=== PATIENT | male | born 1925 | race Caucasian/White ===

== ENCOUNTER 2016-08-14 10:20 | Inpatient (IN) | payer MEDICARE ==
[~2016-08-14] VITALS: Ht 170.2 cm; Wt 85.7 kg
[2016-08-14] MEDS ORDERED: IV NS 0.9% 500 ML BAG IV ONE (10:30)
[2016-08-14] MEDS ORDERED: IV NS 0.9% 500 ML IV ONE (10:32)
[2016-08-14] MEDS ORDERED: IV SET PRIMARY 1 EA INFUS.SET MC ONE (10:32)
[2016-08-14 10:34] LABS: BASOPHILS % (AUTO) 0.5 % (0.0-2.0); EOSINOPHILS % (AUTO) 0.8 % (0.0-6.0); HEMATOCRIT 42 % (39-51); HEMOGLOBIN 13.8 g/dL (13.5-17.5); LYMPHOCYTES % (AUTO) 17.5 % (20.0-44.0); MEAN CORPUSCULAR HEMOGLOBIN 31 PG (26.0-33.0); MEAN CORPUSCULAR HGB CONC 33 g/dl (31.0-36.0); MEAN CORPUSCULAR VOLUME 95 fL (80-96); MONOCYTES # (AUTO) 0.4 /CMM (0.1-1.30); MONOCYTES % (AUTO) 7.6 % (2.0-12.0); NEUTROPHILS # (AUTO) 4.3 /CMM (1.8-8.9); NEUTROPHILS % (AUTO) 73.6 % (43.0-81.0); PLATELET COUNT (AUTO) 145 /CMM (150-450); RDW COEFFICIENT OF VARIATION 12.6 (11.5-15.0); RED BLOOD CELL COUNT(AUTO) 4.45 MIL/uL (4.5-6.0); WHITE BLOOD COUNT (AUTO) 5.7 K/uL (4.3-11.0)
[2016-08-14 10:46] LABS: CALCIUM, SERUM 7.8 mg/dL (8.5-10.1); CARBON DIOXIDE 30 mmol/L (21-32); CHLORIDE 105 mmol/L (98-107); CREATININE 1.4 mg/dL (0.6-1.3); GLUCOSE 111 mg/dL (74-106); POTASSIUM 3.9 mmol/L (3.5-5.1); SODIUM SERUM 141 mmol/L (136-145); UREA NITROGEN, BLOOD 20 mg/dL (7-18)
[2016-08-14 10:48] LABS: INR 1.06 (0.87-1.13)
[2016-08-14 10:55] LABS: TROPONIN I < 0.017 ng/mL (0.00-0.056)
[2016-08-14 10:58] LABS: ALANINE AMINOTRANSFERASE < 6 U/L (12-78); ALBUMIN 3.4 g/dL (3.4-5.0); ALKALINE PHOSPHATASE 57 U/L (46-116); ASPARTATE AMINOTRANSFERASE 14 U/L (15-37); BILIRUBIN,DIRECT 0.1 mg/dL (0.0-0.2); BILIRUBIN,TOTAL 0.5 mg/dL (0.2-1.0); TOTAL PROTEIN, SERUM 6.3 g/dL (6.4-8.2)
[2016-08-14] MEDS ORDERED: ASPI-991 PO (11:37)
[2016-08-14] MEDS ORDERED: ESCI20TA PO (11:37)
[2016-08-14] MEDS ORDERED: CARB-93 PO (11:37)
[2016-08-14] MEDS ORDERED: BISA-79 PO (11:37)
[2016-08-14] MEDS ORDERED: BUPR75TA8 PO (11:37)
[2016-08-14] MEDS ORDERED: CALC625T65 PO (11:37)
[2016-08-14] MEDS ORDERED: ACET325T53 PO ×2 (11:38)
[2016-08-14] MEDS ORDERED: CETI5TAB30 PO (11:38)
[2016-08-14] MEDS ORDERED: ASCO500T9 PO (11:38)
[2016-08-14] MEDS ORDERED: CHOL200026 PO (11:38)
[2016-08-14] MEDS ORDERED: SIMV20TA6 PO (11:38)
[2016-08-14] MEDS ORDERED: KRIL1CAP18 PO (11:38)
[2016-08-14] MEDS ORDERED: TRAZ-147 PO (11:38)
[2016-08-14] MEDS ORDERED: GABA-532 PO (11:38)
[2016-08-14] MEDS ORDERED: OMEP20TA20 PO (11:38)
[2016-08-14] MEDS ORDERED: ONDA8TAB6 PO (11:49)
[2016-08-14] MEDS ORDERED: GUAI600T PO (11:49)
[2016-08-14] MEDS ORDERED: TRIA15OI9 TP (11:49)
[2016-08-14] MEDS ORDERED: MENT113O4 TP (11:49)
[2016-08-14] MEDS ORDERED: SENN-18 PO (11:49)
[2016-08-14] MEDS ORDERED: NA P RC (11:49)
[2016-08-14] MEDS ORDERED: POLY255P2 PO (11:49)
[2016-08-14 12:30] VITALS: BP 138/70
[2016-08-14] MEDS ORDERED: IV NS 0.9% 1,000 ML IV PRN (13:18)
[2016-08-14] MEDS ORDERED: MAGNESIUM HYDROXIDE 30 ML UDC PO PRN (13:30)
[2016-08-14] MEDS ORDERED: Z GUARD REMEDY 2 OZ OINT TP PRN (13:30)
[2016-08-14] MEDS ORDERED: ZOLPIDEM TARTRATE 5 MG TABLET PO PRN (13:30)
[2016-08-14] MEDS ORDERED: ACETAMINOPHEN 325 MG TABLET PO PRN (13:30)
[2016-08-14] MEDS ORDERED: HYDROCODONE/APAP 5/325MG 1 EACH TABLET PO PRN (13:30)
[2016-08-14] MEDS ORDERED: MAG HYDROX/AL HYDROX/SIMETH 30 ML UDC PO PRN (13:30)
[2016-08-14] MEDS ORDERED: ONDANSETRON HCL/PF 4 MG/2 ML VIAL IVP PRN (13:30)
[2016-08-14] MEDS ORDERED: SENNOSIDES 8.6 MG TABLET PO PRN (13:30)
[2016-08-14] MEDS ORDERED: ENOXAPARIN SODIUM 40 MG/0.4 ML DISP.SYRIN SQ SCH (13:31)
[2016-08-14 16:00] VITALS: BP 138/70
[2016-08-14] MEDS: CARBIDOPA/LEVODOPA 25/100 MG 1 UDTAB PO SCH ×2 (18:12→21:38)
[2016-08-14] MEDS: BISACODYL (5 MG) 5 MG TABLET.DR PO SCH (18:12)
[2016-08-14 20:00] VITALS: BP 154/84
[2016-08-14] MEDS ORDERED: GUAIFENESIN LA 600 MG TABLET.SA PO PRN (21:00)
[2016-08-14] MEDS ORDERED: SIMVASTATIN 20 MG TABLET PO SCH (22:00)
[2016-08-14] MEDS ORDERED: TRAZODONE 50 MG TABLET PO SCH (22:00)
[2016-08-14] MEDS ORDERED: GABAPENTIN 100 MG CAPSULE PO SCH (22:00)
[2016-08-15 04:00] VITALS: BP 141/83
[2016-08-15 07:28] LABS: APPEARANCE,URINE CLEAR (CLEAR); BILIRUBIN,URINE NEGATIVE (NEGATIVE); BLOOD, URINE NEGATIVE Ery/uL (NEGATIVE); COLOR,URINE YELLOW (YELLOW); KETONES,URINE NEGATIVE (NEGATIVE); LEUKOCYTE ESTERASE ,URINE NEGATIVE (NEGATIVE); NITRITE, URINE NEGATIVE (NEGATIVE); PH,URINE 5.5 (5.0-8.0); PROTEIN,URINE NEGATIVE (NEGATIVE); UGLUCOSE NEGATIVE (NEGATIVE); UROBILINOGEN,URINE 0.2 EU/dL (0.2)
[2016-08-15 07:29] LABS: BASOPHILS % (AUTO) 0.6 % (0.0-2.0); EOSINOPHILS # (AUTO) 0.1 /CMM (0.0-0.7); EOSINOPHILS % (AUTO) 1.9 % (0.0-6.0); HEMATOCRIT 42 % (39-51); HEMOGLOBIN 14.1 g/dL (13.5-17.5); LYMPHOCYTES # (AUTO) 1.2 /CMM (0.8-4.8); LYMPHOCYTES % (AUTO) 21.8 % (20.0-44.0); MEAN CORPUSCULAR HEMOGLOBIN 33 PG (26.0-33.0); MEAN CORPUSCULAR HGB CONC 34 g/dl (31.0-36.0); MEAN CORPUSCULAR VOLUME 96 fL (80-96); MONOCYTES # (AUTO) 0.5 /CMM (0.1-1.30); MONOCYTES % (AUTO) 9.9 % (2.0-12.0); NEUTROPHILS # (AUTO) 3.6 /CMM (1.8-8.9); NEUTROPHILS % (AUTO) 65.8 % (43.0-81.0); PLATELET COUNT (AUTO) 132 /CMM (150-450); RDW COEFFICIENT OF VARIATION 12.9 (11.5-15.0); RED BLOOD CELL COUNT(AUTO) 4.33 MIL/uL (4.5-6.0); WHITE BLOOD COUNT (AUTO) 5.5 K/uL (4.3-11.0)
[2016-08-15] MEDS ORDERED: PANTOPRAZOLE 40 MG TABLET.DR PO SCH (07:30)
[2016-08-15 07:43] LABS: CALCIUM, SERUM 7.6 mg/dL (8.5-10.1); CARBON DIOXIDE 31 mmol/L (21-32); CHLORIDE 107 mmol/L (98-107); GLUCOSE 106 mg/dL (74-106); PHOSPHORUS 2.6 mg/dL (2.5-4.9); POTASSIUM 3.5 mmol/L (3.5-5.1); SODIUM SERUM 143 mmol/L (136-145); UREA NITROGEN, BLOOD 16 mg/dL (7-18)
[2016-08-15 07:47] LABS: CHOLESTEROL 133 mg/dL (<200); HDL CHOLESTEROL 47 mg/dL (40-60); LDL 65 mg/dL (0-99); TRIGLYCERIDES 78 mg/dL (30-150)
[2016-08-15] MEDS: BISACODYL (5 MG) 5 MG TABLET.DR PO SCH (08:36)
[2016-08-15] MEDS: CARBIDOPA/LEVODOPA 25/100 MG 1 UDTAB PO SCH ×2 (08:41→12:19)
[2016-08-15 09:00] VITALS: BP 156/91
[2016-08-15] MEDS ORDERED: ASPIRIN EC 81 MG TABLET.DR PO SCH (09:00)
[2016-08-15] MEDS ORDERED: buPROPion 75 MG TABLET PO SCH (09:00)
[2016-08-15 09:36] VITALS: BP 156/91
== END 2016-08-15 15:00 | DRG 73 ==
LOC: ER 10:23 → TELE 11:30 → MED 08-15 10:28
PROVIDERS: ADMIT Internal Medicine; ATTEND Internal Medicine
DX: G90.8 Other disorders of autonomic nervous system (principal); N17.0 Acute kidney failure with tubular necrosis; E78.5 Hyperlipidemia, unspecified; F03.90 Unspecified dementia, unspecified severity, without behavioral disturbance, psychotic disturbance, mood disturbance, and anxiety; F32.9 Major depressive disorder, single episode, unspecified; G20 Parkinson's disease; G62.9 Polyneuropathy, unspecified; K21.9 Gastro-esophageal reflux disease without esophagitis; I10 Essential (primary) hypertension; Z79.899 Other long term (current) drug therapy; Z91.81 History of falling; Z86.79 Personal history of other diseases of the circulatory system; I70.90 Unspecified atherosclerosis
CPT/HCPCS: 36415; 70450-TC; 71010-TC; 80048-TC; 80061-TC; 80076-TC; 81000-TC; 83735-TC; 84100-TC; 84484-TC; 85025-TC; 85730-TC; 87081-TC; 93307-TC; A4606; J1650; J7030; J7040; Z7610

== ENCOUNTER 2016-09-13 11:49 | Inpatient (IN) | payer MEDICARE, BC ==
[~2016-09-13] VITALS: Ht 182.9 cm; Wt 99.8 kg
[~2016-09-13 11:49] MED LIST: ACET325T53 PO; ASCO500T9 PO; ASPI-991 PO; BISA-79 PO; BUPR75TA8 PO; CALC625T65 PO; CARB-93 PO; CETI5TAB30 PO; CHOL200026 PO; ESCI20TA PO; GABA-532 PO; GUAI600T PO; KRIL1CAP18 PO; MENT113O4 TP; NA P RC; OMEP20TA20 PO; ONDA8TAB6 PO; POLY255P2 PO; SENN-18 PO; SIMV20TA6 PO; TRAZ-147 PO; TRIA15OI9 TP
--- NOTE | 2016-09-13 11:50 | NUR ---
PATIENT BIB FAMILY FROM [place] D/T WORSENING WEAKNESS. PATIENT IS A/OX 2-3, SLIGHTLY LETHARGIC. BREATHING EVEN AND UNLABORED. NO SOB. VITALS STABLE. SAFETY AND COMFORT MEASURES IN PLACE. AWAITING MD ORDERS.
[2016-09-13] MEDS ORDERED: IV NS 0.9% 500 ML BAG IV ONE (12:00)
[2016-09-13 12:12] LABS: BASOPHILS % (AUTO) 0.2 % (0.0-2.0); EOSINOPHILS % (AUTO) 0.3 % (0.0-6.0); HEMATOCRIT 44 % (39-51); HEMOGLOBIN 14.1 g/dL (13.5-17.5); LYMPHOCYTES # (AUTO) 0.5 /CMM (0.8-4.8); MEAN CORPUSCULAR HEMOGLOBIN 31 PG (26.0-33.0); MEAN CORPUSCULAR HGB CONC 33 g/dl (31.0-36.0); MEAN CORPUSCULAR VOLUME 96 fL (80-96); MONOCYTES # (AUTO) 0.6 /CMM (0.1-1.30); MONOCYTES % (AUTO) 6.3 % (2.0-12.0); NEUTROPHILS % (AUTO) 88.2 % (43.0-81.0); PLATELET COUNT (AUTO) 122 /CMM (150-450); RED BLOOD CELL COUNT(AUTO) 4.53 MIL/uL (4.5-6.0); WHITE BLOOD COUNT (AUTO) 10.1 K/uL (4.3-11.0)
[2016-09-13 12:22] LABS: CALCIUM, SERUM 8.3 mg/dL (8.5-10.1); CARBON DIOXIDE 29 mmol/L (21-32); CHLORIDE 104 mmol/L (98-107); CREATININE 1.3 mg/dL (0.6-1.3); GLUCOSE 139 mg/dL (74-106); POTASSIUM 3.5 mmol/L (3.5-5.1); SODIUM SERUM 139 mmol/L (136-145); UREA NITROGEN, BLOOD 25 mg/dL (7-18)
[2016-09-13 12:26] LABS: INR 1.1 (0.87-1.13); PROTHROMBIN TIME 11.5 SECS (9.5-12.7)
[2016-09-13 12:28] LABS: ALANINE AMINOTRANSFERASE 49 U/L (12-78); ALBUMIN 3.6 g/dL (3.4-5.0); ALKALINE PHOSPHATASE 152 U/L (46-116); ASPARTATE AMINOTRANSFERASE 202 U/L (15-37); BILIRUBIN,DIRECT 0.6 mg/dL (0.0-0.2); TOTAL PROTEIN, SERUM 6.5 g/dL (6.4-8.2)
--- NOTE | 2016-09-13 12:29 | NUR ---
PATIENT TAKEN TO CT SCAN VIA STRETCHER.
[2016-09-13 12:30] LABS: TROPONIN I < 0.017 ng/mL (0.00-0.056)
--- NOTE | 2016-09-13 12:38 | NUR ---
TEXTED DR. MCCARTHY FOR MRI APPROVAL.
--- NOTE | 2016-09-13 12:40 | NUR ---
PATIENT RETURNED FROM CT SCAN
--- NOTE | 2016-09-13 12:42 | NUR ---
DR. MCCARTHY TEXTED BACK, ON HOLD FOR NOW, HE WILL LET US KNOW.
[2016-09-13 13:21] LABS: THYROID STIMULATING HORMONE 1.263 uIU/mL (0.358-3.74)
--- NOTE | 2016-09-13 13:22 | NUR ---
PATIENT TAKEN TO CT SCAN OF ABDOMEN VIA STRETCHER.
[2016-09-13] MEDS ORDERED: IV NS 0.9% 1,000 ML BAG IV ONE (13:30)
[2016-09-13] MEDS ORDERED: PIPERACILLIN /TAZOBACTAM 3.375 G in IV D5W 50 ML IV ONE (13:30)
[2016-09-13] MEDS ORDERED: VANCOMYCIN 1 GM in IV D5W 250 ML IV ONE (13:30)
--- NOTE | 2016-09-13 13:34 | NUR ---
PATIENT RETURNED BACK FROM CT SCAN.
--- NOTE | 2016-09-13 13:55 | NUR ---
CALLED [employer]A CAVAZOS PHOTOCOMPOSING KEYBOARD OPERATOR WAS PAGED.
[2016-09-13] MEDS ORDERED: MORPHINE SULFATE INJ 2 MG/ML DISP.SYRIN ONE (14:03)
--- NOTE | 2016-09-13 14:11 | NUR ---
DR MELLO ON THE PHONE WITH DR JESSICA.
[2016-09-13] MEDS ORDERED: ONDANSETRON HCL/PF 4 MG/2 ML VIAL ONE (14:30)
[2016-09-13] MEDS ORDERED: MORPHINE SULFATE INJ 2 MG/ML DISP.SYRIN IV ONE (14:30)
[2016-09-13] MEDS ORDERED: ONDANSETRON HCL/PF 4 MG/2 ML VIAL IV ONE (14:30)
--- NOTE | 2016-09-13 14:35 | NUR ---
REPORT GIVEN TO HEIKE LOPEZ FOR IGOR UPON ADMISSION.
[2016-09-13 14:44] LABS: APPEARANCE,URINE SL CLOUDY (CLEAR); BILIRUBIN,URINE NEGATIVE (NEGATIVE); BLOOD, URINE NEGATIVE Ery/uL (NEGATIVE); COLOR,URINE DARK YELLO (YELLOW); KETONES,URINE TRACE (NEGATIVE); LEUKOCYTE ESTERASE ,URINE NEGATIVE (NEGATIVE); NITRITE, URINE NEGATIVE (NEGATIVE); PH,URINE 5.5 (5.0-8.0); PROTEIN,URINE NEGATIVE (NEGATIVE); UGLUCOSE NEGATIVE (NEGATIVE)
--- NOTE | 2016-09-13 14:45 | NUR ---
PATIENT TRANSPORTED TO [facility] VIA STRETCHER WITH EMT AND RN. RN, JESSICA TO PROVIDE IGOR.
[2016-09-13 14:51] LABS: BACTERIA,URINE None seen /HPF (None Seen); SQUAMOUS EPITHELIAL CELL,UR Rare /HPF (None Seen); WBC,URINE 0-2 /HPF (0-3)
[2016-09-13 15:00] VITALS: BP 130/72
[2016-09-13] MEDS ORDERED: ACETAMINOPHEN 325 MG TABLET PO PRN (15:00)
[2016-09-13] MEDS ORDERED: ONDANSETRON HCL/PF 4 MG/2 ML VIAL IVP PRN (15:00)
[2016-09-13] MEDS: PANTOPRAZOLE 40 MG TABLET.DR PO SCH (15:00)
[2016-09-13] MEDS ORDERED: ZOLPIDEM TARTRATE 5 MG TABLET PO PRN (15:00)
[2016-09-13] MEDS ORDERED: MAG HYDROX/AL HYDROX/SIMETH 30 ML UDC PO PRN (15:00)
[2016-09-13] MEDS ORDERED: HYDROCODONE/APAP 5/325MG 1 EACH TABLET PO PRN (15:00)
[2016-09-13] MEDS ORDERED: MAGNESIUM HYDROXIDE 30 ML UDC PO PRN (15:00)
[2016-09-13] MEDS ORDERED: PIPERACILLIN /TAZOBACTAM 4.5 G in IV D5W 50 ML IV SCH (15:00)
--- NOTE | 2016-09-13 15:00 | NUR ---
MS/RN Patient received Patient received from emergency room with diagnose of generalized weakness and infection. Patient fully admitted, pictures taken and placed in chart. Admitting order's entered by Dr Montemayor.
[2016-09-13] MEDS: IV NS 0.9% 1,000 ML IV PRN (16:49)
[2016-09-13] MEDS ORDERED: HALOPERIDOL LACTATE INJ 5 MG/ML VIAL IM ONE (17:30)
--- NOTE | 2016-09-13 17:30 | NUR ---
MS/RN Agitation. Patient becoming increasingly agitated, climbing out of bed, removing IV line and tele monitor. Son at bedside but unable to calm father. Dr Montemayor called to obtain order for medication to calm patient. Call back from Dr Montemayor - orders given for one time dose of haldol 1mg IM X1 dose, sitter 1:1 and mittens if needed.
[2016-09-13] MEDS: PIPERACILLIN /TAZOBACTAM 3.375 G in IV D5W 50 ML IV SCH (17:36)
--- NOTE | 2016-09-13 17:53 | NUR ---
MS/RN Haldol Haldol 1mg administered IM for agitation, will monitor effectiveness.
--- NOTE | 2016-09-13 18:33 | NUR ---
MS/RN End note Patient now calm after haldol was administered. All orders carried out. Will continue to monitor and ensure safety.
--- NOTE | 2016-09-13 19:15 | NUR ---
ROVING SIZER NOTES RECEIVED PT IN BED, RESTING AT THIS TIME, AROUSES EASILY A/O X1-2 , DTR AT BEDSIDE. NO DISTRESS, NO SOB NOTED. ON 02 @ 2LPM VIA NC TOLERATED WELL. PT WITH ON AND OFF EPISODES OF ATTEMPTING TO PULL OUT IV LINE. ALSO WITH EPISODES OF RESTLESSNESS NOTED. PT ORIENTED TO REALITY. SAFETY PRECAUTIONS OBSERVED. IV SITE ON LFA INTACT AND PATENT, IVF INFUSING WELL. ALL NEEDS ATTENDED AND MET. CALL LIGHT WITHIN REACH. BED ON LOWEST LEVEL. SR UP X 2 . WILL CONT TO MONITOR.
[2016-09-13 20:00] VITALS: BP 159/76
--- NOTE | 2016-09-13 20:45 | NUR ---
PT TRYING TO PULL OUT IV AND ATTEMPTING TO REMOVE BOILER WASHER LEADS, AND ATTEMPTING TO BITE THE 02 TUBING. ORIENTED PT TO REALITY, PT IS A/O X 1 AT THIS TIME. PT ON 1: 1 SITTER FOR SAFETY . WILL CONT TO MONITOR.
--- NOTE | 2016-09-13 22:00 | NUR ---
PT IN BED, RESTING AT THIS TIME, STILL WITH EPISODES OF RESTLESSNESS. NO DISTRESS NOTED ON SINUS RHYTHM 87 ON THE MONITOR. SITTER AT BED SIDE FOR SAFETY . WILL CONT TO MONITOR.
[2016-09-14] VITALS: BP_SYST 140; BP_SYST 168; BP_DIAS 65; BP_DIAS 86
--- NOTE | 2016-09-14 | NUR ---
PLACED A CALL TO VINEET ABDI NP REGARDING PATIENT'S CODE STATUS. BARREL ROLLER OPERATOR WITH N.O NOTED AND CARRIED OUT
[2016-09-14] MEDS: PIPERACILLIN /TAZOBACTAM 3.375 G in IV D5W 50 ML IV SCH ×4 (00:08→18:48)
[2016-09-14 04:00] VITALS: BP 156/80
--- NOTE | 2016-09-14 06:32 | NUR ---
MEDICAID SERVICE COORDINATOR NOTES PT IN BED, RESTING AT THIS TIME, AROUSES EASILY A/O X1-2 . NO DISTRESS, NO SOB NOTED. ON 02 @ 2LPM VIA NC TOLERATED WELL. PT WITH ON AND OFF EPISODES OF ATTEMPTING TO PULL OUT IV LINE. ALSO WITH EPISODES OF RESTLESSNESS NOTED. PT ORIENTED TO REALITY. SAFETY PRECAUTIONS OBSERVED. SITTER AT BED SIDE FOR SAFETY. IV SITE ON LFA INTACT AND PATENT, IVF INFUSING WELL. ALL NEEDS ATTENDED AND MET. CALL LIGHT WITHIN REACH. BED ON LOWEST LEVEL. SR UP X 2 . WILL ENDORSE TO NEXT SHIFT FOR IGOR.
--- NOTE | 2016-09-14 07:20 | NUR ---
TANK BUILDER HELPER NOTES RECEIVED PATIENT IN BED RESTING, AROUSES EASILY A/O X 1-2, CONFUSED, REORIENTED PATIENT TO REALITY. SITTER ON BEDSIDE FOR SAFETY.. NO ACUTE DISTRESS, NO SOB NOTED. IV SITE INTACT AND PATENT. SAFETY PRECAUTIONS OBSERVED. BED IN LOWEST POSITION, LOCKED SIDERAILS UP X2. CALL LIGHT WITHIN REACH. WILL CONTINUE TO MONITOR ACCORDINGLY.
--- NOTE | 2016-09-14 07:25 | NUR ---
RN NOTES PATIENT IS CALM THIS MORNING. WILL CONTINUE TO MONITOR.
[2016-09-14 08:00] VITALS: BP 145/73
[2016-09-14] MEDS: PANTOPRAZOLE 40 MG TABLET.DR PO SCH (08:19)
--- NOTE | 2016-09-14 08:23 | NUR ---
RN NOTES MD ORDERED D/C TELEMETRY
--- NOTE | 2016-09-14 09:47 | NUR ---
RN NOTES PT EVAL DONE, PATIENT MAXIMUM ASSIST.
[2016-09-14 10:00] VITALS: BP 145/73
[2016-09-14 11:08] LABS: BASOPHILS % (AUTO) 0.1 % (0.0-2.0); EOSINOPHILS % (AUTO) 0.3 % (0.0-6.0); HEMATOCRIT 38 % (39-51); HEMOGLOBIN 12.7 g/dL (13.5-17.5); LYMPHOCYTES # (AUTO) 0.5 /CMM (0.8-4.8); LYMPHOCYTES % (AUTO) 6.4 % (20.0-44.0); MEAN CORPUSCULAR HEMOGLOBIN 32 PG (26.0-33.0); MEAN CORPUSCULAR HGB CONC 34 g/dl (31.0-36.0); MEAN CORPUSCULAR VOLUME 96 fL (80-96); MONOCYTES # (AUTO) 0.7 /CMM (0.1-1.30); MONOCYTES % (AUTO) 9.2 % (2.0-12.0); NEUTROPHILS # (AUTO) 6.9 /CMM (1.8-8.9); PLATELET COUNT (AUTO) 98 /CMM (150-450); RDW COEFFICIENT OF VARIATION 13.6 (11.5-15.0); RED BLOOD CELL COUNT(AUTO) 3.92 MIL/uL (4.5-6.0); WHITE BLOOD COUNT (AUTO) 8.2 K/uL (4.3-11.0)
[2016-09-14 11:34] LABS: ALANINE AMINOTRANSFERASE 110 U/L (12-78); ALBUMIN 2.7 g/dL (3.4-5.0); ALKALINE PHOSPHATASE 101 U/L (46-116); ASPARTATE AMINOTRANSFERASE 83 U/L (15-37); BILIRUBIN,DIRECT 0.4 mg/dL (0.0-0.2); BILIRUBIN,TOTAL 1.1 mg/dL (0.2-1.0); CALCIUM, SERUM 7.1 mg/dL (8.5-10.1); CARBON DIOXIDE 28 mmol/L (21-32); CHLORIDE 106 mmol/L (98-107); CREATININE 1.1 mg/dL (0.6-1.3); GLUCOSE 140 mg/dL (74-106); MAGNESIUM 1.7 mg/dL (1.8-2.4); PHOSPHORUS 1.9 mg/dL (2.5-4.9); POTASSIUM 3.3 mmol/L (3.5-5.1); SODIUM SERUM 142 mmol/L (136-145); TOTAL PROTEIN, SERUM 5.3 g/dL (6.4-8.2); UREA NITROGEN, BLOOD 17 mg/dL (7-18)
[2016-09-14 11:38] LABS: BAND % (MANUAL) 2 % (0.0-5.0); LYMPHOCYTES % (MANUAL) 1 % (16-48); MONOCYTES % (MANUAL) 5 % (0-11.0); NEUTROPHILS % (MANUAL) 92 (42-76)
[2016-09-14 11:41] LABS: CHOLESTEROL 118 mg/dL (<200); HDL CHOLESTEROL 44 mg/dL (40-60); LDL 60 mg/dL (0-99); THYROID STIMULATING HORMONE 1.664 uIU/mL (0.358-3.74); TRIGLYCERIDES 64 mg/dL (30-150)
[2016-09-14] MEDS: ASPIRIN 81 MG TAB.CHEW PO SCH (11:51)
[2016-09-14] MEDS: CARVEDILOL 12.5 MG TABLET PO SCH ×2 (11:52→21:02)
[2016-09-14] MEDS: ENOXAPARIN SODIUM 40 MG/0.4 ML DISP.SYRIN SQ SCH (11:58)
[2016-09-14] MEDS ORDERED: QUETIAPINE FUMARATE 25 MG TABLET PO PRN (12:30)
[2016-09-14] MEDS: CARBIDOPA/LEVODOPA 25/100 MG 1 UDTAB PO SCH ×2 (12:33→17:28)
[2016-09-14] MEDS: IV NS 0.9% 1,000 ML IV PRN (12:36)
[2016-09-14 16:00] VITALS: BP_SYST 145; BP_SYST 151; BP_DIAS 85; BP_DIAS 87
[2016-09-14] MEDS ORDERED: NEUTRA PHOS 1 POWD.PACKET PO ONE (17:00)
[2016-09-14] MEDS ORDERED: POTASSIUM CHLORIDE 20 MEQ TAB.PRT.SR PO ONE (17:00)
[2016-09-14] MEDS ORDERED: Magnesium 1GM/D5W 100ML PREMIX PIGGYBACK IV ONE (17:00)
--- NOTE | 2016-09-14 17:18 | NUR ---
RN NOTES PATIENT COMPLAIN DIFFICULTY BM. PATIENT WAS IMPACTED, CHARGE NURSE MADE AWARE. FLEET ENEMA ORDERED AND CARRIED OUT. PATIENT TOLERATED ENEMA WELL HAVING LARGE SOFT BROWN STOOL.
[2016-09-14] MEDS ORDERED: Magnesium 1GM/D5W 100ML PREMIX 100 ML IV SCH (17:30)
[2016-09-14] MEDS ORDERED: NA PHOS,M-B/NA PHOS,DI-BA 1 EA ENEMA RC PRN (17:30)
--- NOTE | 2016-09-14 19:00 | NUR ---
RN CLOSING NOTES PATIENT IN BED RESTING, FAMILY ON BEDSIDE. PATIENT CALM AND COOPERATIVE. NO ACUTE DISTRESS, NO SOB NOTED. ALL NEEDS ATTENDED AND PROVIDED. KEPT PATIENT SAFE AND COMFORTABLE. ENDORSED TO INFORMATION SYSTEMS SECURITY SPECIALIST RN FOR CONTINUITY OF CARE.
--- NOTE | 2016-09-14 19:20 | NUR ---
MS/TEST CLERK; RECEIVED PT'S REPORT FROM THE DAY SHIFT RN FOR CONTINUITY OF CARE. AT THIS TIME PT IN BED WITH SON AND DAUGHTER VISITING. PT IS AWAKE , TALKING BUT CONFUSED. HOB AT 45 DEGREES. PT WHEN I ASKED HOW HE IS HE SAID OK AND ABLE TO SHAKE WITH MY RT HAND. WITH O2 3L NC ON. BREATHING NON LABORED. IVF INFUSING FINE ON LFA.BED ON LOWER POSITION AND LOCKED FOR SAFETY. SIDE RAILS ARE UP FOR SAFETY. SITTER PRESENT . NOTED PT KEEP TOUCHING HIS RT EAR AND SAID SLIGHT SORE. CONTINUE TO MONITOR.
--- NOTE | 2016-09-14 19:50 | NUR ---
MS/MRP CONTROLLER; CHARGE NURSE MADE ROUND AND ABLE TO MET AND TALKED TO THE PT'S SON AND DAUGHTER. THEN PT'S SON AMD DAUGHTER WENT HOME.
--- NOTE | 2016-09-14 20:15 | NUR ---
MS/WEALTH MANAGEMENT DIRECTOR; NOTED PT IS INCONTINENT OF URINE LARGE AMOUNT YELLOW URINE. PERINEAL CARE DONE. DIAPER CHANGED . ABLE ABLE TO TURN TO SIDE WITH HELP. TURNED AND REPOSITIONED TO LT SIDE WITH PILLOWS SUPPORT TO HIS BACK AND BOTH HEELS ARE OFFLOADED.
[2016-09-14 20:30] VITALS: BP 155/92
[2016-09-14] MEDS: QUETIAPINE FUMARATE 25 MG TABLET PO SCH (21:03)
--- NOTE | 2016-09-14 21:15 | NUR ---
MS/CONTROL OFFICER; PT WAS ASKING WATER AND TYLENOL FOR C/O RT EAR PAIN. TYLENOL 650 MG TABS Q6 HOUR PRN GIVEN AT 2117 . PT ABLE TO SWALLOW WITHOUT PROBLEM. ASPIRATION PRECAUTION OBSERVED.
--- NOTE | 2016-09-14 22:00 | NUR ---
MS/SALES TRAINING MANAGER; PT IN BED SLEEPING AT THIS TIME. HOB AT 45 DEGREES. WITH O2 3L NC ON. BREATHING NON LABORED. IVF ON PROGRESS. SITTER PRESENT IN THE ROOM. WILL CONTINUE TO MONITOR.
--- NOTE | 2016-09-14 23:30 | NUR ---
MS/CLIP WRAPPER; NOTED PT WOKE UP TALKING TO SELF , CONFUSED KEEP REMOVING HIS GOWN AND KEEP TOUCHING THE IV TRYING TO REMOVE . ALSO PT NOTED INCONTINENT OF URINE YELLOW COLOR LARGE AMOUNT. BED BATH GIVEN. TOTAL BED LINENS AND GOWN CHANGED. TURNED AND REPOSITIONED FOR COMFORT. IVF INFUSING FINE. O2 2L NC ON . WILL CONTINUE TO MONITOR.
--- NOTE | 2016-09-15 | NUR ---
MS/TUNE UP MECHANIC; PT AT THIS TIME. SLEEPING QUIETLY. BREATHING NON LABORED. O2 2L NC ON. IVF INFUSING FINE. SITTER PRESENT. WILL CONTINUE TO MONITOR.
[2016-09-15] MEDS: PIPERACILLIN /TAZOBACTAM 3.375 G in IV D5W 50 ML IV SCH ×5 (00:05→23:17)
--- NOTE | 2016-09-15 02:00 | NUR ---
MS/CONTINUITY CLERK; PT IS AWAKE NOTED INCONTINENT OF URINE LARGE AMOUNT YELLOW COLOR. PERINEAL AND DIAPER CHANGED. TURNED AND REPOSITIONED. TO RT SIDE WITH PILLOWS SUPPORT TO BACK AND BOTH HEELS OFFLOADED.
--- NOTE | 2016-09-15 02:20 | NUR ---
MS/CORE WINDER; PT C/O AGAIN TO HIS RT EAR. I ASKED THE PAIN LEVEL HHE SAID 5 OUT OF 1O. WANTS PAIN MED. ALSO NOTED PT RUBBING HIS RT EAR. BP ON LA 156 / 88 P 88 , TEMP. 98.9 ON LAX, O2 SAT ON 2L NC 95 % r 20. NORCO 5-325 MG 1 TAB. PO Q4 PRN GIVEN HE SWALLOW THE PILL WITHOUT PROBLEM. WILL CONTINUE TO MONITOR. SITTER PRESENT.
[2016-09-15] MEDS: IV NS 0.9% 1,000 ML IV PRN (03:05)
--- NOTE | 2016-09-15 03:25 | NUR ---
MS/CHAIN SALES REPRESENTATIVE; PT AWAKE AT THIS TIME TALKING TO HIMSELF AND KEEP REMOVING HIS GOWN. NOTED INCONTINENT OF URINE AGAIN , PERINEAL CARE AND DIAPER CHANGED. REPOSITIONED.
--- NOTE | 2016-09-15 03:30 | NUR ---
MS/FONDANT PUFF MAKER; RE CHECKED TEMP. 99.0 PER LT AXILLA.
--- NOTE | 2016-09-15 04:25 | NUR ---
MS/PARA MACHINE OPERATOR; NOTED PT TRYING TO BIT HIS LFA WHERE THE IV LINE IS . I TOLD THE PT NOT TO DO IT ; PT SAID " I AM TRYING TO EAT MY DINNER" OFFERED WATER TO DRINK WHICH DRUNK IT. T3MP RE CHECKED 99.4.
--- NOTE | 2016-09-15 04:30 | NUR ---
MS/ELECTRICAL SYSTEMS ENGINEER; PT SLEEPING AT THIS TIME. BREATHING NON LABORED. WITH O2 2 L NC ON. WILL CONTINUE TO MONITOR.
--- NOTE | 2016-09-15 05:00 | NUR ---
MS/HIGH SCHOOL MATHEMATICS TEACHER; PT STILL SLEEPING AT THIS TIME. BREATHING NON LABORED. WILL CONTINUE TO MONITOR.
--- NOTE | 2016-09-15 07:04 | NUR ---
MS/MARINE FIRER; PT SLEPT ON AND OFF . CONFUSED AND KEPT REMOVING HIS GOWN AND BLANKET. IVF ON PROGRESS. CONTINUE TO MONITOR. SITTER PRESENT IN THE ROOM AT ALL TIMES FOR SAFETY. IVF ON PROGRESS. CONTINUE TO MONITOR. WILL ENDORSE TO THE DAY SHIFT RN.
--- NOTE | 2016-09-15 07:15 | NUR ---
RN OPENING NOTES RECEIVED PATIENT IN BED RESTING, AROUSES EASILY. PATIENT A/O X 1-2, CONFUSED SOMETIMES, REORIENTED PATIENT TO REALITY. NO ACUTE DISTRESS, NO SOB NOTED. IV SITE INTACT AND PATENT. KEPT PATIENT SAFE AND COMFORTABLE. BED IN LOW POSITION, LOCKED, SIDERAILS UP X2. CALL LIGHT WITHIN REACH. WILL CONTINUE TO MONITOR ACCORDINGLY.
[2016-09-15 08:00] VITALS: BP 155/90
[2016-09-15 08:23] VITALS: BP 155/90
[2016-09-15] MEDS: ASPIRIN 81 MG TAB.CHEW PO SCH (08:55)
[2016-09-15] MEDS: CARBIDOPA/LEVODOPA 25/100 MG 1 UDTAB PO SCH ×3 (08:55→17:54)
[2016-09-15] MEDS: PANTOPRAZOLE 40 MG TABLET.DR PO SCH (08:56)
[2016-09-15] MEDS: CARVEDILOL 12.5 MG TABLET PO SCH ×2 (08:56→20:17)
[2016-09-15] MEDS: ENOXAPARIN SODIUM 40 MG/0.4 ML DISP.SYRIN SQ SCH (09:03)
[2016-09-15 16:00] VITALS: BP 147/91
--- NOTE | 2016-09-15 19:00 | NUR ---
RN CLOSING NOTES PATIENT IN BED RESTING, SITTER ON BEDSIDE FOR SAFETY. NO ACUTE DISTRESS, NO SOB NOTED. ALL NEEDS ATTENDED AND PROVIDED. KEPT PATIENT SAFE AND COMFORTABLE. BED IN LOW POSITION, LOCKED, SIDERAILS UP X2. CALL LIGHT WITHIN REACH. ENDORSED TO MINERAL SURVEYING TECHNICIAN RN FOR CONTINUITY OF CARE.
--- NOTE | 2016-09-15 19:41 | NUR ---
RN NOTES RECEIVED PATIENT IN BED, ALERT AND AWAKE, WITH EPISODES OF CONFUSION, NO SOB, ON 2LPM VIA NC, SPO2 95%. NOT IN APPARENT PAIN AT THIS TIME, LEFT FA PERIPHERAL LINE IS PATENT AND INFUSING WELL WITH NS AT 75 CC/HR. REPOSITIONED FOR COMFORT, CALL LIGHT WITHIN REACH. SITTER AT THE BEDSIDE.
[2016-09-15 20:00] VITALS: BP 153/86
[2016-09-15 20:04] VITALS: BP 153/86
[2016-09-15] MEDS: QUETIAPINE FUMARATE 25 MG TABLET PO SCH (22:07)
[2016-09-16] MEDS: IV NS 0.9% 1,000 ML IV PRN ×2 (00:36→16:51)
[2016-09-16] MEDS: PIPERACILLIN /TAZOBACTAM 3.375 G in IV D5W 50 ML IV SCH ×3 (05:35→18:35)
--- NOTE | 2016-09-16 06:41 | NUR ---
RN CLOSING NOTES PATIENT IS AWAKE AND ALERT, NO SOB, ON 3LPM VIA NC, SP02 95%, CONFUSED, AGITATED AND COMBATIVE DURING NURSING CARE. LEFT FA PERIPHERAL LINE IS INFUSING WELL, SECURED WITH BURN NET, PATIENT HAS EPISODES OF PULLING IV LINE, KEPT SAFE, SITTER AT THE BEDSIDE, CALL LIGHT WITHIN REACH.
[2016-09-16 08:00] VITALS: BP_SYST 156; BP_DIAS 71; BP_DIAS 91
--- NOTE | 2016-09-16 08:00 | NUR ---
m/s kiln burner: initial assessment received pt in bed awake, alert to self only, appears weak. p.t. tx in progress. continue on 1:1 sitter for safety. no s/s of pain or any discomfort. reality orientation provided prn. call light within reach. will continue to monitor.
[2016-09-16] MEDS: CARVEDILOL 12.5 MG TABLET PO SCH ×2 (08:43→20:45)
[2016-09-16] MEDS: CARBIDOPA/LEVODOPA 25/100 MG 1 UDTAB PO SCH ×3 (08:43→16:51)
[2016-09-16] MEDS: ASPIRIN 81 MG TAB.CHEW PO SCH (08:43)
[2016-09-16] MEDS: ENOXAPARIN SODIUM 40 MG/0.4 ML DISP.SYRIN SQ SCH (08:44)
[2016-09-16] MEDS: PANTOPRAZOLE 40 MG TABLET.DR PO SCH (08:47)
--- NOTE | 2016-09-16 10:00 | NUR ---
m/s securities research analyst: notes titrated o2 to 2l/min via n/c. sitter remains at bedside. no s/s of sob. will continue to monitor.
[2016-09-16 10:48] LABS: BASOPHILS % (AUTO) 0.2 % (0.0-2.0); EOSINOPHILS % (AUTO) 0.2 % (0.0-6.0); HEMATOCRIT 39 % (39-51); HEMOGLOBIN 13.3 g/dL (13.5-17.5); LYMPHOCYTES # (AUTO) 0.7 /CMM (0.8-4.8); LYMPHOCYTES % (AUTO) 9.9 % (20.0-44.0); MEAN CORPUSCULAR HEMOGLOBIN 32 PG (26.0-33.0); MEAN CORPUSCULAR HGB CONC 34 g/dl (31.0-36.0); MEAN CORPUSCULAR VOLUME 95 fL (80-96); MONOCYTES % (AUTO) 13.5 % (2.0-12.0); NEUTROPHILS # (AUTO) 5.7 /CMM (1.8-8.9); NEUTROPHILS % (AUTO) 76.2 % (43.0-81.0); PLATELET COUNT (AUTO) 110 /CMM (150-450); RDW COEFFICIENT OF VARIATION 13.5 (11.5-15.0); RED BLOOD CELL COUNT(AUTO) 4.13 MIL/uL (4.5-6.0); WHITE BLOOD COUNT (AUTO) 7.5 K/uL (4.3-11.0)
[2016-09-16 11:00] LABS: ALANINE AMINOTRANSFERASE 36 U/L (12-78); ALBUMIN 2.6 g/dL (3.4-5.0); ALKALINE PHOSPHATASE 91 U/L (46-116); ASPARTATE AMINOTRANSFERASE 41 U/L (15-37); BILIRUBIN,TOTAL 0.8 mg/dL (0.2-1.0); CALCIUM, SERUM 7.6 mg/dL (8.5-10.1); CARBON DIOXIDE 31 mmol/L (21-32); CHLORIDE 105 mmol/L (98-107); GLUCOSE 136 mg/dL (74-106); SODIUM SERUM 142 mmol/L (136-145); TOTAL PROTEIN, SERUM 5.7 g/dL (6.4-8.2); UREA NITROGEN, BLOOD 9 mg/dL (7-18)
[2016-09-16 11:03] LABS: TROPONIN I 0.048 ng/mL (0.00-0.056)
[2016-09-16] MEDS ORDERED: POTASSIUM CHLORIDE 20 MEQ TAB.PRT.SR PO ONE (12:00)
--- NOTE | 2016-09-16 12:00 | NUR ---
m/s textile chemist: notes received new order from dr. siu and orders acknowledged. pharmacist vipul to clarify magnesium sulfate ivpb order, pt had no level today, last level on 09/14/2016 and was given 1 gm of magnesium sulfate on that same day. will continue to monitor.
--- NOTE | 2016-09-16 13:50 | NUR ---
m/s district plant supervisor: notes vipul (pharmacist) spoke to dr. siu and verified re: magnesium sulfate 2gm ivpb order and informed me okay to give despite level was on 09/14/2016 and magnesium sulfate 1gm was given on same day.
[2016-09-16] MEDS: Magnesium 1GM/D5W 100ML PREMIX 100 ML IV SCH ×2 (14:03→15:20)
--- NOTE | 2016-09-16 14:20 | NUR ---
m/s phlebotomy manager: notes dr. siu here and spoke to family at bedside and updated plan of care.
--- NOTE | 2016-09-16 19:00 | NUR ---
m/s supervisor building maintenance: notes report given to ha (nurse) for continuity of care. sitter remains at bedside. needs attended. no apparent distress noted.
--- NOTE | 2016-09-16 19:30 | NUR ---
MS SERVICE SPECIALIST INITIAL NOTES RECEIVED REPORT FROM AM NURSE SABINE, CHECKED PT HE'S LYING ON HIS BED WITH EYES CLOSED BUT AROUSES TO TOUCH, DENIES ANY PAIN OR ANY DISCOMFORT. IVF NS INFUSING AT THIS TIME ON HIS LEFT FOREARM COVERED WITH KERLIX, PATENT AND INTACT. SKIN WARM AND DRY TO TOUCH, NOTICED SOME BRUISE ON HIS ARM ,ELBOW,AND RIGHT HAND. WITH O2 AT 2LITERS VIA NC. RE-ORIENTED WHERE HE . BREATHING EVEN AND NON-LABORED. KEPT HIM WARM AND COMFORTABLE AT ALL TIMES WILL CONTINUE CLOSELY MONITORING FOR SAFETY.
[2016-09-16 21:12] VITALS: BP 150/87
[2016-09-16] MEDS: QUETIAPINE FUMARATE 25 MG TABLET PO SCH (21:16)
--- NOTE | 2016-09-16 22:00 | NUR ---
PATIENT MONITOR NOTES ROUTINE MEDS GIVEN AND LIGHT SNACKS ALSO OFFERED. ATE WELL NO ASPIRATION NOTED. CONSUELO CARE ALSO DONE AND REPOSITION PT FOR COMFORT. KEPT HIM WARM AND COMFORTABLE AT ALL TIMES. WILL CONTINUE TO MONITOR.
--- NOTE | 2016-09-17 | NUR ---
RECRUITING ASSISTANT NOTES RESTING AT THIS TIME BUT EASILY AROUSES TO STIMULI OR SOME NOISE.ZOSYN IVP BAG HUNG BY NURSE SALLY. KEPT HIM COMFORTABLE AT ALL TIMES. WILL CONTINUE TO MONITOR.
[2016-09-17] MEDS: PIPERACILLIN /TAZOBACTAM 3.375 G in IV D5W 50 ML IV SCH ×5 (05:45→18:00)
--- NOTE | 2016-09-17 07:08 | NUR ---
STOCK SHEETS CLEANER INSPECTOR CLOSING NOTES PT WOKE UP SPONGE BATH RENDERED AND SKIN TREATMENT ALSO DONE, STABLE LOGAN THE NIGHT AND SLEPT WELL EXCEPT WHEN HE FEELS WET HE WOKE UP AND CHANGED HIS DIAPER. NO SIGNS OF ANY ACUTE DISTRESS OR ANY DISCOMFORT NOTED ALL NIGHT. ALL DUE MEDS GIVEN AND ALL NEEDS MET. SITTER AT THE BEDSIDE FOR SAFETY. ENDORSE TO AM NURSE WELL TO THE SITTER FOR SAFETY AND CONTINUITY OF CARE. KEPT HIM WARM AND COMFORTABLE AT ALL TIMES.
--- NOTE | 2016-09-17 07:25 | NUR ---
MS RN OPENING NOTE RECEIVED REPORT ON PATIENT AT THE BEDSIDE. PATIENT A/O TO PLACE AND PERSON, DISORIENTED TO TIME AND PLACE AND REQUIRES FREQUENT REORIENTATION TO TOPIC. DENIED PAIN AT THIS TIME. REPORTED SLEPT WELL. PATENT 18 GAUGE IV IN L/FA WITH NS AT 75ML/HR ORDERED. DENIES SOB/CHEST PAIN. CHEST RAISING EQUALLY BILATERALLY. NON-LABORED BREATHING. PATIENT REQUESTED BREAKFAST. BREAKFAST ORDERED (MECHANICAL SOFT DIET). PATIENT IN BED/. BED IN LOW POSITION, SIDE RAILS UP X2, PATIENT IN SHERMAN POSITION. ALL NEEDS WITHIN REACH.
[2016-09-17] MEDS: CARBIDOPA/LEVODOPA 25/100 MG 1 UDTAB PO SCH ×3 (08:24→16:02)
[2016-09-17] MEDS: ASPIRIN 81 MG TAB.CHEW PO SCH (08:24)
[2016-09-17] MEDS: CARVEDILOL 12.5 MG TABLET PO SCH ×2 (08:25→20:02)
[2016-09-17] MEDS: PANTOPRAZOLE 40 MG TABLET.DR PO SCH (08:26)
[2016-09-17] MEDS: IV NS 0.9% 1,000 ML IV PRN (08:34)
[2016-09-17] MEDS: ENOXAPARIN SODIUM 40 MG/0.4 ML DISP.SYRIN SQ SCH (08:35)
[2016-09-17] MEDS: Z GUARD REMEDY 2 OZ OINT TP PRN ×2 (08:35→16:02)
--- NOTE | 2016-09-17 09:00 | NUR ---
MS RN NOTIFIED DR. Radha JESSICA PATIENT'S LABS WERE NOT DRAWN TODAY/P REPLACEMENTS COMPLETED. NO REPLACEMENTS WERE ORDERED AT THIS TIME.. NO NEW ORDERS RECEIVED AT THIS TIME.
--- NOTE | 2016-09-17 15:44 | NUR ---
MS RN NOTES PATIENT BLOOD PRESSURE SYSTOLIC 170'S-180'S AT THIS TIME. MESSAGE TO DR JESSICA TO NOTIFY. PATIENT STABLE. DENIES HEADACHE, DIZZINESS, LIGHT HEADEDNESS.
--- NOTE | 2016-09-17 15:54 | NUR ---
MS RN REPORTED TO DR. Radha JESSICA PATIENT'S BP ELEVATED. RECEIVED A TELEPHONE ORDER FOR LISINOPRIL PO 10MG TWICE DAILY. ORDER READ BACK AND VERIFIED.
[2016-09-17] MEDS ORDERED: LISINOPRIL (10MG) 10 MG TABLET PO SCH (16:00)
--- NOTE | 2016-09-17 18:53 | NUR ---
MS RN NOTES IV REMOVED PRESSURE AND DRESSING APPLIED NO BLEEDING NOTED. IV TIP INTACT.
--- NOTE | 2016-09-17 19:30 | NUR ---
MS/RN OPENING NOTES PT RECEIVED A/OX2, ON O2 VIA NC AT 2LPM, BREATHING EVEN AND UNLABORED. NO S/S OF DISTRESS. SON AT BEDSIDE. PT TO BE DISCHARGED TO [facility] TONIGHT. WILL CALL TO INFORM [facility] OF WHEN PT IS ON TRANSIT. WILL CONTINUE TO MONITOR
[2016-09-17 20:15] VITALS: BP 150/90
--- NOTE | 2016-09-17 20:37 | NUR ---
MS/RN NOTES TO DISCHARGED FROM UNIT VIA [facility] WITH EMS. IV REMOVED. ON O2LPM VIA ND. ALL BELONGINGS SENT HOME WITH SON (WHO WAS AT BEDSIDE), DISCHARGE PAPERWORK SENT WITH PATIENT. DR. JESSICA CALLED ME AND WAS NOTIFIED ABOUT PT'S INCREASED BP 175/93 AND ADMINISTRATION OF 2100 COREG. HE ASKED IF HE HAD FEVER AND I TOLD HIM THE PT'S TEMP WAS 99.2F. VERBALIZED UNDERSTANDING AND SAID PT NEEDS TO BE DISCHARGED TO REHAB [facility]. HE WAS ALSO MADE AWARE THAT PT ALSO GOT LISINOPRIL AT 1600. PT DISCHARGED IN STABLE CONDITION. Addendum: 09/17/16 at 2043 by KARL MCGILL RN REPORT GIVEN TO STAN FROM [facility].
== END 2016-09-17 20:35 | DRG 444 ==
LOC: ER 11:52 → TELE 14:06 → MED 09-14 08:14
PROVIDERS: ADMIT Internal Medicine; ATTEND Internal Medicine
DX: K80.10 Calculus of gallbladder with chronic cholecystitis without obstruction (principal); N17.0 Acute kidney failure with tubular necrosis; G93.40 Encephalopathy, unspecified; I21.4 Non-ST elevation (NSTEMI) myocardial infarction; E87.2 Acidosis; F03.90 Unspecified dementia, unspecified severity, without behavioral disturbance, psychotic disturbance, mood disturbance, and anxiety; F32.9 Major depressive disorder, single episode, unspecified; E78.5 Hyperlipidemia, unspecified; K21.9 Gastro-esophageal reflux disease without esophagitis; Z66 Do not resuscitate; Z79.899 Other long term (current) drug therapy; G20 Parkinson's disease; R53.1 Weakness; I70.90 Unspecified atherosclerosis; G62.9 Polyneuropathy, unspecified; I10 Essential (primary) hypertension
CPT/HCPCS: 36415; 70450-TC; 71010-TC; 72128-TC; 76705-TC; 80048-TC; 80053-TC; 80061-TC; 80076-TC; 81000-TC; 82962-TC; 83605-TC; 83690-TC; 83735-TC; 84100-TC; 84443-TC; 84484-TC; 85025-TC; 85730-TC; 87040-TC; 87081-TC; 87086-TC; 94799-TC; 97110-TC; 97116-TC; 97530-TC; A4606; J1630; J1650; J2270; J2405; J2543; J3370; J3475; J3490; J7030; J7040; J7060; Z7610

== ENCOUNTER 2017-02-12 19:54 | Emergency (ER) | payer MEDICARE, BC ==
[~2017-02-12] VITALS: Ht 177.8 cm; Wt 81.6 kg
[~2017-02-12 19:54] MED LIST changes: +ASPI-1152 PO; -ASPI-991 PO; -CETI5TAB30 PO; +CETI5TAB6 PO; -GUAI600T PO; +GUAI600T53 PO
--- NOTE | 2017-02-12 20:10 | NUR ---
PT JOYA FROM [facility] FOR L HIP PAIN. NOTED SWOLLEN WITH LEFT ELBOW SKIN TEAR. SEEN BY MD FOR EVAL. VSS. PT AAOX3. DENIES OTHER PAIN. SAFETY AND COMFORT MEASURES PROVIDED. WILL MONITOR.
--- NOTE | 2017-02-12 20:18 | NUR ---
PT TAKEN TO CT.
--- NOTE | 2017-02-12 22:25 | NUR ---
ETA 1 HOUR AMBULANZ WEDDING PLANNER
--- NOTE | 2017-02-12 22:30 | NUR ---
WOUND CARE DONE. ICED AFFECTED AREA. VSS.
--- NOTE | 2017-02-13 00:45 | NUR ---
MONIQUEANZ MINING HELPER ARRIVED. Patient discharged to home in stable condition. Written and verbal after care instructions given. Patient verbalizes understanding of instruction. VSS.
[2017-02-13 01:37] VITALS: BP 159/99
== END 2017-02-13 00:45 | disposition home or self-care (01) ==
LOC: ER 19:55
DX: S70.02XA Contusion of left hip, initial encounter (principal); S09.8XXA Other specified injuries of head, initial encounter; I10 Essential (primary) hypertension; G20 Parkinson's disease; Z79.82 Long term (current) use of aspirin; W01.0XXA Fall on same level from slipping, tripping and stumbling without subsequent striking against object, initial encounter; Y93.89 Activity, other specified; Y92.092 Bedroom in other non-institutional residence as the place of occurrence of the external cause; Y99.8 Other external cause status
CPT/HCPCS: 70450; 70486; 72125; 72170; 72192; 99284; A4606; Z7610